=== PATIENT | female | born 1955 | race Caucasian/White ===

== ENCOUNTER → 2021-04-04 | Outpatient (CLI) | payer MEDICARE | END | disposition home or self-care (01) | LOC: CFH 13:04 | PROVIDERS: ATTEND Internal Medicine | DX: Z12.2 Encounter for screening for malignant neoplasm of respiratory organs (principal); F17.210 Nicotine dependence, cigarettes, uncomplicated; I70.0 Atherosclerosis of aorta; I77.810 Thoracic aortic ectasia; J43.2 Centrilobular emphysema; R91.1 Solitary pulmonary nodule; J98.11 Atelectasis | CPT/HCPCS: 71271 ==